=== PATIENT | female | born 1955 | race Caucasian/White ===

== ENCOUNTER → 2021-09-03 | Outpatient (CLI) | payer MEDICARE ==
--- NOTE | 2021-09-08 05:37 | PE ---
EXAMINATION TYPE: PET CT fusion skull to thigh DATE OF EXAM: 09/06/2021 COMPARISON: Outside breast MRI August 30, 2021 HISTORY: Newly diagnosed left-sided breast cancer. TECHNIQUE: Following the intravenous administration of 10.28 mCi of F-18 FDG, whole body images are performed from the skull base to the midthigh. Images are reviewed on the computer in the coronal, a xial, and sagittal planes. Reconstructed rotating images are created on independent workstation and reviewed on the computer. A localization and attenuation correction CT is performed in conjunction with the PET scan. Blood glucose level equals 100. SCAN: Initial Scan FINDINGS: SKULL BASE AND NECK: No areas of abnormal hypermetabolic uptake. CHEST, MEDIASTINUM, AND HILAR REGION: Corresponding to recent breast MRI there is large lobulated mas s or neoplasm measuring 4.5 x 4.4 cm axial image 73 with biopsy clip anterior inferior aspect axial i mage 74 having max SUV of 35.7 on axial image 65. Craniocaudal dimension roughly 5.0 cm. Perhaps some small satellite nodules along the inferior margin. There is ametabolic round 3.7 cm focal fluid terri ection inferiorly axial image 82 favoring post biopsy hematoma. No abnormal metabolic uptake in the left axilla, there is a biopsy clip axial image 73 near prominent but subcentimeter lymph nodes. No abnormal hypermetabolic intramammary adenopathy No abnormal hypermetabolic uptake in the right breast or axilla. No abnormal hypermetabolic uptake in the remainder of the thorax. ABDOMEN AND PELVIS: Large thin-walled cyst anterior in the liver measures 9.0 cm long axis. Occasiona l subcentimeter benign-appearing thin-walled cyst also present. No abnormal hypermetabolic uptake. No rmal excretion. OSSEOUS STRUCTURES: No areas of abnormal hypermetabolic uptake. OTHER CT: Occasional left-sided pelvic phlebolith. Posterior fusion hardware lumbosacral junction. Sm all sized fat-containing umbilical hernia. Heart size upper limits of normal. IMPRESSION: Abnormal hypermetabolic uptake in the lobulated large left breast mass or neoplasm. No ad ditional areas of abnormal hypermetabolic uptake to suggest metastatic disease.
== END | disposition home or self-care (01) ==
LOC: RADPETMAIN 14:00
PROVIDERS: ATTEND Internal Medicine Hematology & Oncology
DX: C50.212 Malignant neoplasm of upper-inner quadrant of left female breast (principal)
CPT/HCPCS: 78815; A9552

== ENCOUNTER → 2021-09-03 | Outpatient (CLI) | payer MEDICARE ==
[2021-09-03 12:16] VITALS: BP 118/72; PULSE 72; RESP 18; TEMP 97.7
--- NOTE | 2021-09-03 12:35 | P.GSHP ---
History of Present Illness H&P Date: 09/03/21 Chief Complaint: left breast cancer Jaz is a 66 year old white female seen in consultation for Dr. Gandara with a complaint of a large mass in her left breast UIQ for about 9 months. Patient had a bilateral mammogram and ultrasound of the left breast done at [place] in July 2021 revealing a 16.3 x 5.7 cm mass in the upper inner quadrant of the left breast. A 1.7 cm lymph node was identified as well. 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 Biopsy of left axillary lymph node was nondiagnostic. She had an MRI of both breasts done on 6621. Findings were as follows Left breast: No biopsy-proven malignancy responding to 9.5 cm lobulated irregular cystic mass extending from the lower inner to the upper inner left breast. No evidence of chest wall or skin involvement Suspicious findings: 2 lymph nodes with mild cortical thickening within the lower axilla Indeterminate left internal mammary lymph nodes Right breast: Suspicious findin.3 cm region of non-mass enhancement with persistent enhancement kinetics in the mid posterior central right breast obtaining a tissue diagnosis is recommended and this is amiable to MRI guided core biopsy No right internal mammary or axillary adenopathy Few T2 hyperintense masses within the liver further characterization with ultrasound is recommended Patient is having a PET scan done today. Prior to this she had not had any breast biopsies. She had bilateral breast reduction in 2005. She has not had any recent trauma or infection in her breast. Caffeine: none nicotine: none chocolate: occasional BCP: in her twenties hormones: bioidentical for 10 months in 2000 Family History: maternal aunt: lung cnacer Hormonal History: menarche: 13 G0 menopause: 48 BCP: in her twenties hormones: as above at 43 Surgical history: Bilateral breast reduction Laminectomy spinal fusion tonsilectomy Medical History: hypothyroid chronic back pain Social History: Nicotine: Negative Alcohol: Negative Drugs: Negative - Constitutional Constitutional: Denies chills, Denies fever - EENT Eyes: denies blurred vision, denies pain Ears: bilateral: tinnitus, deny: decreased hearing Ears, nose, mouth and throat: Denies headache, Denies sore throat - Breasts Breasts: bilateral: as per HPI - Cardiovascular Cardiovascular: Denies chest pain, Denies shortness of breath - Respiratory Respiratory: Denies cough, Denies 7 - Gastrointestinal Gastrointestinal: Denies abdominal pain, Denies diarrhea, Denies nausea, Denies vomiting - Genitourinary (Female) Genitourinary: Denies dysuria, Denies hematuria - Menstruation Menstruation: Reports postmenopausal - Musculoskeletal Comment: muscle spasm in her back - Integumentary Integumentary: Denies pruritus, Denies rash - Neurological Neurological: Denies numbness, Denies weakness - Psychiatric Psychiatric: Denies anxiety, Denies depression - Endocrine Endocrine: Reports as per HPI - Hematologic/Lymphatic Comment: none - Allergic/Immunologic Allergic/Immunologic: Reports as per HPI Past Medical History History of Any Multi-Drug Resistant Organisms: None Reported Smoking Status: Former smoker Surgical - Exam BMI: 38 - General no distress - Eyes normal ocular movement - Neck trachea midline - Respiratory normal respiratory effort, clear to auscultation - Cardiovascular Rhythm: regular Heart Sounds: normal: S1, S2 - Abdomen Abdomen: soft, non tender, no guarding, no rigid, no rebound - Integumentary normal turgor - Neurologic no disoriented, no combative - Musculoskeletal normal gait, normal posture - Psychiatric oriented to time, oriented to person, oriented to place, speech is normal, memory intact Breast Exam: BRA: 40DD inspection: well healed scars from prior surgery, protuberance at the 12 o'clock position in the left breast Operation: Right breast: Multi-positional exam fibrocystic changes no dominant masses or nodules of concern Right axilla: No adenopathy of concern Left breast: At the 12 o'clock position there is a protuberant area and area of tumor which is approximately 12 x 10 cm in size this is in the upper inner quadrant area extending inferior to the lower inner quadrant Left axilla: No adenopathy of concern Results Mammograms/ultrasound from [place] not available MRI of both breasts were report reviewed Assessment and Plan Assessment: Impression: Biopsy-proven left breast invasive ductal carcinoma G2 ER/SD positive HER-2/kathryn negative/suspicious lymph node which was biopsied but nondiagnostic/mass in the breast is approximately 13 cm Recent MRI on revealed a lesion in the right breast which was 2.3 cm x 1.3 cm for which MRI guided biopsy was recommended Consider whether repeat biopsy of the axillary lymph node is necessary on the left side PET scan Plan: 1. Await results of PET scan 2. Presentation of case at tumor board 3. Neoadjuvant chemo/hormonal therapy we are waiting mammal present results 4. Possible repeat biopsy left axillary node, possible right breast MRI guided core biopsy Patient to follow up after the above things are done CC: Dr. Gandara, Dr. Marianna Shya
== END ==
LOC: WWCWWP 11:58
PROVIDERS: ATTEND Surgery
DX: C50.212 Malignant neoplasm of upper-inner quadrant of left female breast (principal); Z17.0 Estrogen receptor positive status [ER+]; E03.9 Hypothyroidism, unspecified; Z87.891 Personal history of nicotine dependence; Z88.5 Allergy status to narcotic agent; Z88.6 Allergy status to analgesic agent; Z91.018 Allergy to other foods; Z88.0 Allergy status to penicillin; Z91.012 Allergy to eggs

== ENCOUNTER → 2022-08-04 | Outpatient (CLI) | payer MEDICARE ==
--- NOTE | 2022-08-04 14:07 | P.PN ---
Subjective Progress Note Date: 08/04/22 Principal diagnosis: Left breast invasive ductal carcinoma treated with neoadjuvant hormone therapy with a 60-80% reduction in size of the tumor left breast cancer Jaz is a 67 year old white female seen in consultation for Dr. Gandara with a complaint of a large mass in her left breast UIQ for about 9 months. Patient had a bilateral mammogram and ultrasound of the left breast done at [place] in July 2021 revealing a 16.3 x 5.7 cm mass in the upper inner quadrant of the left breast. A 1.7 cm lymph node was identified as well. Ultrasound- guided biopsy was performed on revealing a grade 2 invasive ductal cancer ER/NH positive HER-2/kathryn negative. Biopsy of left axillary lymph node was nondiagnostic. She had an MRI of both breasts done on 6621. Findings were as follows Left breast: biopsy-proven malignancy corresponding to 9.5 cm lobulated irregular cystic mass extending from the lower inner to the upper inner left breast. No evidence of chest wall or skin involvement Suspicious findings: 2 lymph nodes with mild cortical thickening within the lower axilla Indeterminate left internal mammary lymph nodes Right breast: Suspicious findin.3 cm region of non-mass enhancement with persistent enhancement kinetics in the mid posterior central right breast obtaining a tissue diagnosis is recommended and this is amiable to MRI guided core biopsy No right internal mammary or axillary adenopathy Few T2 hyperintense masses within the liver further characterization with ultrasound is recommended Patient had a PET scan on 09-03-21 revealed abnormal uptake in the left breast but no additional areas of concern. Patient was last seen here 09-03-21 since than she has been on neoadjuvant hormone therapy. The tumor is approximately 80% smaller. The patient has not had any recent radiographic evaluation. Note from Denice Blankenship 07-13-22 reviewed; patient felt to be ready for surgery at this time. This initially on letrazole this was stopped secondary to severe joint and muscle pains and fatigue. She was changed to Arimidex which also cause symptoms of the patient stopped this as well. At the present time the patient is not taking any hormone therapy. Prior to this she had not had any breast biopsies. She had bilateral breast reduction in 2005. She has not had any recent trauma or infection in her breast. Caffeine: none nicotine: none chocolate: occasional BCP: in her twenties hormones: bioidentical for 10 months in 2000 Family History: maternal aunt: lung cnacer Hormonal History: menarche: 13 G0 menopause: 48 BCP: in her twenties hormones: as above at 43 Surgical history: Bilateral breast reduction Laminectomy spinal fusion tonsilectomy Medical History: hypothyroid chronic back pain Social History: Nicotine: Negative Alcohol: Negative Drugs: Negative - Constitutional Constitutional: Denies chills, Denies fever - EENT Eyes: denies blurred vision, denies pain Ears: bilateral: tinnitus, deny: decreased hearing Ears, nose, mouth and throat: Denies headache, Denies sore throat - Breasts Breasts: bilateral: as per HPI - Cardiovascular Cardiovascular: Denies chest pain, Denies shortness of breath - Respiratory Respiratory: Denies cough, Denies 7 - Gastrointestinal Gastrointestinal: Denies abdominal pain, Denies diarrhea, Denies nausea, Denies vomiting - Genitourinary (Female) Genitourinary: Denies dysuria, Denies hematuria - Menstruation Menstruation: Reports postmenopausal - Musculoskeletal Comment: muscle spasm in her back - Integumentary Integumentary: Denies pruritus, Denies rash - Neurological Neurological: Denies numbness, Denies weakness - Psychiatric Psychiatric: Denies anxiety, Denies depression - Endocrine Endocrine: Reports as per HPI - Hematologic/Lymphatic Comment: none - Allergic/Immunologic Allergic/Immunologic: Reports as per HPI Past Medical History History of Any Multi-Drug Resistant Organisms: None Reported Smoking Status: Former smoker Objective - Constitutional General appearance: Present: cooperative - EENT Eyes: Present: EOMI ENT: Present: hearing grossly normal - Neck Neck: Present: normal ROM - Respiratory Respiratory: bilateral: CTA - Cardiovascular Rhythm: regular Heart sounds: normal: S1, S2 - Gastrointestinal General gastrointestinal: Present: soft - Integumentary Integumentary: Present: normal turgor - Musculoskeletal Musculoskeletal: Present: gait normal - Psychiatric Psychiatric: Present: A&O x's 3, appropriate affect, intact judgment & insight - Additional findings Additional findings: Breast Exam: BRA: 40DD inspection: well healed scars from prior surgery, bilateral reduction mammoplasties in the past, bilateral grade 2 ptosis Operation: Right breast: Multi-positional exam fibrocystic changes no dominant masses or nodules of concern Right axilla: No adenopathy of concern Left breast: At the 12 o'clock position there is a protuberant area and area of tumor which is approximately 12 x 10 cm in size in the past this is now decreased to approximately 5 x 3 cm in size is greatest in the 12 o'clock position Left axilla: No adenopathy of concern Assessment and Plan Assessment: Impression: Biopsy-proven left breast invasive ductal carcinoma G2 ER/NH positive HER-2/kathryn negative/suspicious lymph node which was biopsied but nondiagnostic/mass in the breast is approximately 13 cm MRI on 6221 revealed a lesion in the right breast which was 2.3 cm x 1.3 cm for which MRI guided biopsy was recommended; the patient has declined further workup of the right breast unless something specific shows any new mammogram or ultrasound Good response of neoadjuvant hormone therapy PET scan no evidence of metastatic disease No from medical oncology reviewed and patient felt to be ready for surgical intervention at this time Plan: 1. Bilateral mammogram and bilateral breast ultrasound 2. Repeat presentation of case at tumor board 3. Left breast needle localization lumpectomy with left breast sentinel node injection, sentinel node biopsy, possible axillary node dissection, possible onco-plastic tissue transfer Risk and benefits of the procedure discussed with the patient. Patient understands that risk include but are not limited to bleeding, infection, reaction to the anesthetic. If the margins were to be positive it will been possibly be necessary for further surgery. Additionally there may be some cosmetic deformity of the breast secondary to the size of the tumor relative to the size of the breast. The patient understands and wishes to proceed. Additionally we have talked about further evaluation of the right breast. At this time the patient has declined an MRI. If something is shown on mammogram or ultrasound she would consider biopsy at that time. 4. Preoperative clearance from Dr. Marianna Shay CC: Dr. Gandara, Dr. Marianna Shay Additional CC's: Kirill Shay
[2022-08-04 14:13] VITALS: BP 151/82; PULSE 72; RESP 18; TEMP 98.3
== END ==
LOC: WWCWWP 12:57
PROVIDERS: ATTEND Surgery
DX: D05.12 Intraductal carcinoma in situ of left breast (principal); Z87.891 Personal history of nicotine dependence; E03.9 Hypothyroidism, unspecified; M54.50 Low back pain, unspecified; G89.29 Other chronic pain; Z91.012 Allergy to eggs; Z88.5 Allergy status to narcotic agent; Z88.0 Allergy status to penicillin; Z91.018 Allergy to other foods; Z88.8 Allergy status to other drugs, medicaments and biological substances; Z79.82 Long term (current) use of aspirin